=== PATIENT | male | born 1990 | race Caucasian/White ===

== ENCOUNTER 2017-04-02 12:14 | Emergency (ER) | payer SELFPAY ==
[~2017-04-02] VITALS: Ht 182.9 cm; Wt 114.1 kg
[2017-04-02 13:06] VITALS: BP 150/96
[2017-04-02] MEDS ORDERED: BP MEDS (13:07)
== END 2017-04-02 13:35 | disposition home or self-care (01) ==
LOC: ED 13:29
DX: K02.9 Dental caries, unspecified (principal)
CPT/HCPCS: 99283

== ENCOUNTER 2018-09-22 17:34 | Emergency (ER) | payer SELFPAY ==
[~2018-09-22] VITALS: Ht 182.9 cm; Wt 133.1 kg
[~2018-09-22 17:34] MED LIST: BP MEDS
[2018-09-22 18:12] LABS: BASOPHILS # (AUTO) 0.03 x10^3/uL (0-0.1); BASOPHILS % (AUTO) 0 % (0-1); EOSINOPHILS % (AUTO) 2 % (1-7); LYMPHOCYTES # (AUTO) 3.52 x10^3/uL (1-3.4); LYMPHOCYTES % (AUTO) 34 % (22-44); MD NO; MEAN CORPUSCULAR HGB CONC 34.7 g/dL (33.2-36.2); MEAN CORPUSCULAR VOLUME 92.2 fL (81-97); MEAN PLATELET VOLUME 8.4 fL (7.4-10.4); MONOCYTES # (AUTO) 0.84 x10^3/uL (0.2-0.8); MONOCYTES % (AUTO) 8 % (2-9); NEUTROPHILS % (AUTO) 55 % (42-75); PLATELET COUNT 296 x10^3/uL (130-400); RED BLOOD COUNT 5.92 x10^6/uL (4.38-5.82); RED CELL DISTRIBUTION WIDTH 13.1 % (9.4-14.8)
[2018-09-22 18:19] LABS: ALBUMIN 4.5 g/dL (3.4-5.0); ANION GAP 11 mmol/L (5-15); CALCIUM 8.8 mg/dL (8.5-10.1); CHLORIDE 106 mmol/L (98-107); CREATININE 1.03 mg/dL (0.7-1.3)
[2018-09-22 19:01] VITALS: BP 155/76
== END 2018-09-22 19:29 | disposition home or self-care (01) ==
LOC: ED 19:09
DX: E86.0 Dehydration (principal); I10 Essential (primary) hypertension; R51 Headache
CPT/HCPCS: 36415; 71046; 80048; 82040; 85025; 93005; 99285

== ENCOUNTER 2018-11-18 09:43 | Emergency (ER) | payer SELFPAY ==
[~2018-11-18] VITALS: Ht 182.9 cm; Wt 132.1 kg
[2018-11-18] MEDS ORDERED: AMLO-150 PO (10:08)
[2018-11-18 10:19] VITALS: BP 160/98
== END 2018-11-18 10:24 | disposition home or self-care (01) ==
LOC: ED 10:18
DX: K02.9 Dental caries, unspecified (principal); I10 Essential (primary) hypertension
CPT/HCPCS: 99283

== ENCOUNTER 2019-02-01 19:53 | Emergency (ER) | payer OTHER ==
[~2019-02-01] VITALS: Ht 182.9 cm; Wt 127.0 kg
[~2019-02-01 19:53] MED LIST changes: +AMLO-150 PO
[2019-02-01 20:11] VITALS: BP 188/108
== END 2019-02-01 20:28 | disposition home or self-care (01) ==
LOC: ED 20:22
DX: I10 Essential (primary) hypertension (principal); Z76.0 Encounter for issue of repeat prescription
CPT/HCPCS: 99283

== ENCOUNTER 2019-11-25 20:28 | Emergency (ER) | payer OTHER ==
[~2019-11-25] VITALS: Ht 182.9 cm; Wt 127.9 kg
[2019-11-25 20:30] VITALS: BP 158/105
[2019-11-25] MEDS ORDERED: IBUPROFEN 200 MG TABLET PO ONE (21:00)
[2019-11-25] MEDS ORDERED: IBUPROFEN 600 MG TABLET ONE (21:10)
== END 2019-11-25 21:28 | disposition home or self-care (01) ==
LOC: ED 20:51
DX: S39.012A Strain of muscle, fascia and tendon of lower back, initial encounter (principal); I10 Essential (primary) hypertension; W00.0XXA Fall on same level due to ice and snow, initial encounter; Y93.89 Activity, other specified; Y92.89 Other specified places as the place of occurrence of the external cause; Y99.8 Other external cause status
CPT/HCPCS: 93005; 99283